=== PATIENT | female | born 1990 | race Caucasian/White ===

== ENCOUNTER 2018-09-18 06:04 | Day surgery (SDC) | payer BC ==
[2018-09-18] MEDS ORDERED: ECOTRIN PO ONE (06:38)
[2018-09-18] MEDS ORDERED: NACL 0.9% 500 ML 500 ML IV SCH (07:00)
[2018-09-18 07:04] LABS: Basophils % (Auto) 0.5 % (0.0-1.8); Eosinophils # (Auto) 0.1 K/mm3 (0.0-0.4); Hematocrit 35.1 % (30.3-42.9); Hemoglobin 11.8 gm/dl (10.1-14.3); Lymphocytes % (Auto) 32.6 % (13.4-35.0); Mean Corpuscular HGB Conc 34 % (30-34); Mean Corpuscular Volume 82 fl (79-97); Monocytes # (Auto) 0.6 K/mm3 (0.0-0.8); Monocytes % (Auto) 9.2 % (0.0-7.3); Platelet Count 338 K/mm3 (140-440); Red Blood Count 4.28 M/mm3 (3.65-5.03); Red Cell Distribution Width 14.9 % (13.2-15.2)
[2018-09-18 07:15] LABS: INR 0.88 (0.87-1.13)
[2018-09-18 07:25] LABS: BUN/Creatinine Ratio 18; Blood Urea Nitrogen 11 mg/dL (7-17); Calcium 8.8 mg/dL (8.4-10.2); Hemolysis Index 1
[2018-09-18] MEDS ORDERED: HEPARIN/NS 5000 UNIT/500ML(CATH LAB) 500 ML IR ONE (08:13)
[2018-09-18] MEDS ORDERED: HEPARIN 10,000 UNITS/10 ML ONE ×2 (08:13→08:23)
[2018-09-18] MEDS ORDERED: CALAN ONE ×3 (08:14→09:04)
[2018-09-18] MEDS ORDERED: XYLOCAINE 2% INFILTRATI ONE ×2 (08:14→08:23)
[2018-09-18] MEDS ORDERED: NITROGLYCERIN SYRINGE 0 ML ONE (08:14)
[2018-09-18] MEDS ORDERED: NITROGLYCERIN SYRINGE 3 ML ONE (08:23)
[2018-09-18] MEDS ORDERED: HEPARIN/NS 5000 UNIT/500ML(CATH LAB) 1,000 ML IR ONE (08:23)
[2018-09-18] MEDS ORDERED: VERSED ONE (08:24)
[2018-09-18] MEDS ORDERED: SUBLIMAZE ONE (08:24)
--- NOTE | 2018-09-18 09:58 | Cardiac Catherization Report ---
INDICATION FOR PROCEDURE: The patient is a 27-year-old female with complaints of left arm numbness, for which she underwent stress nuclear imaging at which time she developed chest pain along with ischemia in the inferior wall, moderate sized. Because of these, the patient was scheduled for cardiac catheterization for definitive diagnosis and treatment. The patient is aware of the procedure, potential complications, and alternatives of therapy available. The patient is willing to proceed with cardiac catheterization and coronary angiography if indicated intervention. DESCRIPTION OF PROCEDURE: The patient was brought to the catheterization laboratory in a fasting condition. Right wrist area and forearm thoroughly cleansed with Betadine solution. The patient was evaluated for moderate sedation and she was felt to be appropriate candidate for moderate sedation. She received 1 mg of Versed and 50 mcg of fentanyl. Subsequently, right radial artery puncture was made using 21-gauge arterial puncture needle. Subsequently, 5-B[place] slender sheath was introduced. She received 3000 units of intravenous heparin and 5 mg of intra-arterial verapamil. A 5-B[place]raini multipurpose catheter was used to obtain the angiograms of the left ventricle done in [place] projection followed by angiograms of the right coronary artery and this catheter was exchanged with a 5-[place] catheter for engaging the left coronary artery. Left coronary angiograms were obtained in multiple views. At the end of the procedure, catheter and sheath were removed and good hemostasis was achieved with radial band. No untoward complications were noted. The patient tolerated the procedure well. Following findings were noted. HEMODYNAMICS: 1. Opening aortic pressure 137/83, left ventricular pressure 143/17, no gradient across the aortic valve. Estimated ejection fraction 55%. 2. Left ventriculogram done in [place] projection using hand injection showed normal size left ventricle with normal contractility. Ejection fraction was estimated to be 55%. End-diastolic pressure is upper limits of normal to mildly elevated. Mitral regurgitation could not be evaluated because of limited amount of dye injected. 3. Left coronary artery arises normally from left coronary cusp. Left main, LAD and its branches, and circumflex artery and its branch are angiographically smooth and normal. Right coronary artery arises normally from right coronary cusp. PDA shows severe disease in the proximal one-third with occlusion in the distal part. On left coronary injection, very good collaterals were noted to the distal PDA. Both septal collaterals from the distal LAD were noted. The patient tolerated the sedation well. The patient's sedation started at 8:55 a.m. and ended at 9:18 a.m. No untoward complications were noted. The patient at the end of the procedure is breathing normally, moving all the extremities, and communicating well. FINAL IMPRESSION: 1. Normal sized left ventricle with normal contractility. 2. Severe disease in small caliber PDA which is occluded with collaterals from the left coronary system. Otherwise, rest of the arteries angiographically were found to be smooth and normal. At this time, this 27-year-old lady has severe disease in a small to medium sized PDA. Considering she has excellent collaterals, we will try maximal medical therapy and aggressive risk factor modification. If continues to be symptomatic, may consider intervention of this chronically occluded PDA lesion. The patient tolerated the procedure well. No untoward complications were noted and explained to the patient the findings and also discussed with Dr. Ponce, her clock mechanic. JOB# [id number] LARISA/CATRINA
[2018-09-18 11:47] VITALS: BP 133/75
--- NOTE | 2018-09-18 13:38 | Short Stay Summary ---
Short Stay Documentation Date of service: 09/18/18 - History H&P: obtained from office - Allergies and Medications Current Medications: Allergies No Known Allergies Allergy (Unverified 09/18/18 06:05) Home Medications Medication Instructions Recorded Confirmed Last Taken Type Losartan/Hydrochlorothiazide 1 each PO DAILY 09/18/18 09/18/18 09/17/18 History [Losartan-Hctz 50-12.5 mg Tab] - Brief post op/procedure progress note Date of procedure: 09/18/18 Pre-op diagnosis: abnormal stress test; cp Post-op diagnosis: other (CAD) Procedure: [facility] - see dictated cath report Anesthesia: local Estimated blood loss: none Condition: stable - Disposition Condition at discharge: Good Disposition: [id number] TO HOME OR SELFCARE - Discharge Diagnoses (1) CAD (coronary artery disease) Status: Chronic Short Stay Discharge Plan Activity: advance as tolerated Diet: low fat, low cholesterol, low salt Wound: open to air, keep clean and dry, per your surgeon's advice Follow up with: DIAN CAO NP [Other] - 7 Days SHENG REN MD [Staff Physician] - 7 Days Forms: CardCath PCI D/C Instructions, Work/School Excuse Out Patient
== END 2018-09-18 12:00 | disposition home or self-care (01) ==
LOC: CATHLABREC 06:04
PROVIDERS: ATTEND Internal Medicine
DX: I25.10 Atherosclerotic heart disease of native coronary artery without angina pectoris (principal); I10 Essential (primary) hypertension; K21.9 Gastro-esophageal reflux disease without esophagitis; Z98.890 Other specified postprocedural states; Z79.899 Other long term (current) drug therapy
CPT/HCPCS: 36415; 80048; 85025; 85610; 85730; 93005; 93010; 93458; 99156; 99157; C1887; C1894; J1644; J2250; J3010; J7040; Q9967